=== PATIENT | female | born 1980 | race Caucasian/White ===

== ENCOUNTER 2018-05-09 23:37 | Observation (INO) | payer BC ==
[~2018-05-09] VITALS: Ht 165.1 cm; Wt 124.7 kg
[~2018-05-09 23:37] MED LIST: ALBUTEROL0.09 MG/A4 IH; BIRTH CONTROL PILLS; BYSTOLIC5 MG; NAPRELAN 500500 MG PO; NORCO 325 MG-51 TAB PO; PRINIVIL5 MG PO; SOMA 350MG350 MG/TAB PO; ZYRTEC5 MG PO
[2018-05-10 00:40] LABS: HEMOGLOBIN 10.9 g/dl (12.5-16.0); MEAN CELL VOLUME 83 fl (80.0-100.0); MEAN CORPUSCULAR HEMOGLOBIN 27 pg (27.0-31.0); MEAN CORPUSCULAR HGB CONC 32 g/dl (33.0-37.0); MEAN PLATELET VOLUME 9.1 fl (7.4-10.4); PLATELET COUNT 759 K/mm3 (130-400); RED BLOOD COUNT 4.11 M/mm3 (4.10-5.30); REDCELL DISTRIBUTION WIDTH-CV 14.6 % (11.5-14.5)
[2018-05-10 00:41] LABS: HEMATOCRIT 34.1 % (37.0-47.0)
[2018-05-10 00:56] LABS: BILIRUBIN,TOTAL 0.6 mg/dL (0.0-1.0); CALCIUM 8.9 mg/dL (8.4-10.2); CREATININE, serum 0.77 mg/dL (0.52-1.25); POTASSIUM 4.3 mmol/L (3.4-5.0); TOTAL PROTEIN 8.6 gm/dL (6.4-8.2)
[2018-05-10 01:24] LABS: BAND 6 % (0-10); EOSINOPHIL 1 % (0-4); HYPOCHROMIA 1+; LYMPHOCYTE 24 % (20.0-51.0); METAMYELOCYTE 1 % (0-0); NEUTROPHILS 66 % (42.0-75.2); PLATELET ESTIMATE INCREASED (NORMAL)
[2018-05-10 01:25] LABS: STOMATOCYTE 1+
[2018-05-10 01:26] LABS: ANISOCYTOSIS 1+
[2018-05-10 01:37] LABS: C-REACTIVE PROTEIN 3.9 mg/dL (0.0-0.9)
[2018-05-10 02:11] LABS: COLLECTION METHOD CLEAN CATCH
[2018-05-10 02:24] LABS: MUCOUS Present /lpf; PH 6 (5-8); URINE APPEARANCE Clear; URINE BACTERIA None Seen /hpf; URINE BILIRUBIN Negative (NEGATIVE); URINE BLOOD 1+ (NEGATIVE); URINE COLOR Yellow; URINE GLUCOSE Negative (NEGATIVE); URINE KETONE Negative (NEGATIVE); URINE LEUKOCYTE ESTERASE Trace (NEGATIVE); URINE NITRATE Negative (NEGATIVE); URINE PROTEIN(semi-quant) Negative (NEGATIVE); URINE RBC 0-2 /hpf; URINE UROBILINOGEN Negative (NEGATIVE)
[2018-05-10] MEDS ORDERED: TENORMIN 5050 MG/TAB PO (02:43)
[2018-05-10] MEDS ORDERED: CYMBALTA 60MG60 MG PO (02:44)
[2018-05-10] MEDS ORDERED: NEXIUM 20MG20 MG PO ×2 (02:44→03:17)
[2018-05-10] MEDS ORDERED: EZFE 200200 MG PO (02:45)
[2018-05-10] MEDS ORDERED: [UNRECOGNIZED DRUG - OTHER] PO (02:45)
[2018-05-10] MEDS ORDERED: VITAMIN C500 MG PO (02:46)
[2018-05-10] MEDS ORDERED: K-DUR 10 MEQ T10 MEQ PO (02:46)
[2018-05-10] MEDS ORDERED: PERCOCET 325 MG1 TA2 PO ×3 (02:48→03:20)
[2018-05-10 03:07] VITALS: BP 153/88; PULSE 100; TEMP 98
[2018-05-10] MEDS ORDERED: PROAIR HFA0.09 MG/AC IH (03:16)
[2018-05-10] MEDS ORDERED: IRON TABLETS325 MG PO (03:18)
[2018-05-10] MEDS ORDERED: NATURAL POTASS595 MG PO (03:19)
[2018-05-10 08:09] VITALS: BP 149/98; PULSE 84; TEMP 97.9
[2018-05-10 12:03] VITALS: BP 130/76; PULSE 103; TEMP 98.4
[2018-05-10 14:21] VITALS: BP 130/76; PULSE 103; TEMP 98.4
[2018-05-10 17:39] VITALS: BP 150/85; PULSE 99; TEMP 99.6
[2018-05-10 20:00] VITALS: BP 148/90; PULSE 98; TEMP 99.5
== END 2018-05-10 20:15 | disposition short-term general hospital (02) ==
LOC: COL.ER 23:37 → SURG 05-10 00:28
PROVIDERS: Emergency Medicine
DX: R19.09 Other intra-abdominal and pelvic swelling, mass and lump (principal); N97.9 Female infertility, unspecified; R10.32 Left lower quadrant pain; R19.5 Other fecal abnormalities; F32.9 Major depressive disorder, single episode, unspecified; I10 Essential (primary) hypertension
CPT/HCPCS: J1170; J1956; J7030; J7120; Q9967

== ENCOUNTER 2018-05-28 13:37 | Outpatient (CLI) | payer BC ==
[~2018-05-28] VITALS: Ht 165.1 cm; Wt 127.3 kg
[~2018-05-28 13:37] MED LIST changes: +CYMBALTA 60MG60 MG PO; +EZFE 200200 MG PO; +IRON TABLETS325 MG PO; +K-DUR 10 MEQ T10 MEQ PO; +NATURAL POTASS595 MG PO; +NEXIUM 20MG20 MG PO; +PERCOCET 325 MG1 TA2 PO; +PROAIR HFA0.09 MG/AC IH; +TENORMIN 5050 MG/TAB PO; +VITAMIN C500 MG PO; +[UNRECOGNIZED DRUG - OTHER] PO
[2018-05-28 14:11] VITALS: BP 123/89; PULSE 85; TEMP 98.2
== END 2018-05-28 14:27 | disposition home or self-care (01) ==
LOC: EUO 13:37
DX: Z79.2 Long term (current) use of antibiotics (principal)

== ENCOUNTER 2018-06-08 13:21 | Emergency (ER) | payer BC ==
[~2018-06-08] VITALS: Ht 165.1 cm; Wt 127.3 kg
[2018-06-08 13:26] VITALS: BP 137/102
[2018-06-08 14:06] VITALS: PULSE 103; TEMP 97.3
== END 2018-06-08 14:06 | disposition home or self-care (01) ==
LOC: COL.ER 13:21
DX: T81.89XA Other complications of procedures, not elsewhere classified, initial encounter (principal)

== ENCOUNTER 2018-06-12 09:27 | Emergency (ER) | payer BC ==
[~2018-06-12] VITALS: Ht 167.6 cm; Wt 127.3 kg
[2018-06-12 09:47] VITALS: TEMP 98.3
[2018-06-12 10:52] LABS: BASO # 0.1 (0.0-0.2); BASO % 0.8 % (0.0-2.0); EOS # 0.4 (0.0-0.7); GRAN # 5.7 (1.4-6.5); GRAN % 57.5 % (42.2-75.2); LYMPH # 3.1 (1.2-3.4); LYMPH % 30.9 % (20.0-51.0); MEAN CELL VOLUME 82 fl (80.0-100.0); MEAN CORPUSCULAR HEMOGLOBIN 26 pg (27.0-31.0); MEAN CORPUSCULAR HGB CONC 31 g/dl (33.0-37.0); MEAN PLATELET VOLUME 9.2 fl (7.4-10.4); MONO # 0.6 (0.1-0.6); MONO % 6.3 % (1.7-9.3); PLATELET COUNT 415 K/mm3 (130-400); RED BLOOD COUNT 4.32 M/mm3 (4.10-5.30)
[2018-06-12 10:53] LABS: HEMATOCRIT 35.3 % (37.0-47.0)
[2018-06-12 11:03] LABS: BILIRUBIN,TOTAL 0.6 mg/dL (0.0-1.0); C-REACTIVE PROTEIN 2.3 mg/dL (0.0-0.9); CALCIUM 9.4 mg/dL (8.4-10.2); CREATININE, serum 0.69 mg/dL (0.52-1.25); POTASSIUM 4.3 mmol/L (3.4-5.0); TOTAL PROTEIN 7.9 gm/dL (6.4-8.2)
[2018-06-12 14:53] VITALS: BP 126/83; PULSE 86
== END 2018-06-12 15:13 | disposition home or self-care (01) ==
LOC: COL.ER 09:27
PROVIDERS: Emergency Medicine
DX: T82.838A Hemorrhage due to vascular prosthetic devices, implants and grafts, initial encounter (principal)
CPT/HCPCS: J7030

== ENCOUNTER 2018-07-09 16:40 | Emergency (ER) | payer BC ==
[~2018-07-09] VITALS: Ht 167.6 cm; Wt 127.3 kg
[2018-07-09 16:49] VITALS: TEMP 98.6
[2018-07-09 17:32] LABS: COLLECTION METHOD CLEAN CATCH
[2018-07-09 17:43] LABS: MUCOUS Present /lpf; PH 5 (5-8); SQUAMOUS EPITHELIAL 0-2 /hpf; URINE APPEARANCE Clear; URINE BACTERIA Rare /hpf; URINE BILIRUBIN Negative (NEGATIVE); URINE BLOOD 3+ (NEGATIVE); URINE COLOR Yellow; URINE GLUCOSE Negative (NEGATIVE); URINE KETONE Negative (NEGATIVE); URINE LEUKOCYTE ESTERASE Negative (NEGATIVE); URINE NITRATE Negative (NEGATIVE); URINE PROTEIN(semi-quant) Negative (NEGATIVE); URINE UROBILINOGEN Negative (NEGATIVE)
[2018-07-09 18:15] LABS: BASO % 0.5 % (0.0-2.0); EOS # 0.2 (0.0-0.7); EOS % 2.9 % (0-4.0); GRAN # 5.4 (1.4-6.5); GRAN % 66.8 % (42.2-75.2); HEMATOCRIT 37.4 % (37.0-47.0); HEMOGLOBIN 11.5 g/dl (12.5-16.0); LYMPH # 1.7 (1.2-3.4); LYMPH % 21.5 % (20.0-51.0); MEAN CELL VOLUME 81 fl (80.0-100.0); MEAN CORPUSCULAR HEMOGLOBIN 25 pg (27.0-31.0); MEAN CORPUSCULAR HGB CONC 31 g/dl (33.0-37.0); MEAN PLATELET VOLUME 9.3 fl (7.4-10.4); MONO # 0.6 (0.1-0.6); MONO % 7.3 % (1.7-9.3); PLATELET COUNT 372 K/mm3 (130-400); RED BLOOD COUNT 4.63 M/mm3 (4.10-5.30); REDCELL DISTRIBUTION WIDTH-CV 14.8 % (11.5-14.5)
[2018-07-09 18:25] LABS: ALBUMIN 4.1 gm/dL (3.5-5.0); BILIRUBIN,TOTAL 0.7 mg/dL (0.0-1.0); CALCIUM 9.1 mg/dL (8.4-10.2); CREATININE, serum 0.75 mg/dL (0.52-1.25); POTASSIUM 3.6 mmol/L (3.4-5.0); TOTAL PROTEIN 8.2 gm/dL (6.4-8.2)
[2018-07-09 18:52] VITALS: BP 145/92; PULSE 90
== END 2018-07-09 18:52 | disposition home or self-care (01) ==
LOC: COL.ER 16:40
PROVIDERS: Family Medicine
DX: G89.18 Other acute postprocedural pain (principal); R10.9 Unspecified abdominal pain